=== PATIENT | male | born 1985 | race Caucasian/White ===

== ENCOUNTER 2017-08-15 01:21 | Emergency (ER) | payer OTHER ==
[~2017-08-15] VITALS: Ht 188 cm; Wt 95.3 kg
[2017-08-15] MEDS ORDERED: KETO10TA2 PO (04:12)
[2017-08-15] MEDS ORDERED: TAMS0.4C PO (04:12)
== END 2017-08-15 04:30 | disposition home or self-care (01) ==
LOC: ER 01:21
DX: R10.32 Left lower quadrant pain (principal)

== ENCOUNTER 2022-10-13 05:25 | Day surgery (SDC) | payer OTHER ==
[~2022-10-13] VITALS: Ht 188 cm; Wt 104.3 kg
[~2022-10-13 05:25] MED LIST: KETO10TA2 PO; TAMS0.4C PO
== END 2022-10-13 10:15 | disposition home or self-care (01) ==
LOC: U 05:25 → CIR.AMB 05:25 → SURH 07:30 → EDSTATUS 07:30 → CIR.AMB 10:15
PROVIDERS: ATTEND Urology
DX: Z30.2 Encounter for sterilization (principal); Z98.52 Vasectomy status; Z20.822 Contact with and (suspected) exposure to COVID-19